=== PATIENT | male | born 1940 | race Caucasian/White ===

== ENCOUNTER 2016-08-07 05:23 | Observation (INO) | payer MEDICARE, OTHER ==
[~2016-08-07] VITALS: Ht 180.3 cm; Wt 125.0 kg
--- NOTE | 2016-08-08 16:28 | OR ---
ADMIT: 08/07/2016 RM/LOC: [address] [facility] MR#: [id number] [facility] [address] [place] [id number] MARLEY ROSAS [address] [place] [address] Operative/Delivery Room Report SEX: M AGE: 75 : 1940 Corrected: [id number]/08/[id number] njv SURGERY DATE: 08/07/2016 SURGEON: Hari Bravo MD PREOPERATIVE DIAGNOSIS: Morbid obesity. POSTOPERATIVE DIAGNOSIS: Morbid obesity. PROCEDURE: Placement of large Lap-Band for weight loss. SENIOR ENGINEERING TECHNICIAN: Pablito Cisneros MD, was necessary for adequate exposure, retraction, and completion of this case. ANESTHESIA: General endotracheal tube anesthesia. ESTIMATED BLOOD LOSS: 20 mL or less. INDICATION FOR PROCEDURE: Please see H and P. PROCEDURE IN DETAIL: After the risks, benefits, possible complications, and the alternatives had been explained, and informed consent had been obtained, the patient was taken back to the operating room, underwent general endotracheal tube anesthesia, the surgical field was prepped and draped in a sterile manner, placed in a head-up position. An incision was made in the left upper quadrant. Veress needle was inserted. The abdomen was insufflated with CO2. Once there was adequate insufflation, a 5 mm port was placed and the camera was placed through this port site laterally. I then placed my large port at my 1st incision site, two right-sided ports were placed, 5 mm lateral for liver retractor and then another 5 mm epigastric and one more left 5 mm port. The liver retractor was placed and attached with the Shaun Arm into position, then went up open the gastrohepatic ligament, got at the lluvia of the diaphragm, did some dissecting there and dropped in that nice area posterior to the stomach, went up and took the fat pad off using the Harmonic Scalpel. Once that was done, I placed the, like I said, my grasper. The posterior area was able to get it out, but over the greater curve there, introduced the Lap- Band into the abdominal cavity and was brought around into position. Then, using an Endo stitch, placed one stitch up high of the gastric fundus over top to the stomach over top of the band, the band was buckled and a second stitch was placed in the similar manner. Everything appeared in good position. Hopefully, our stitches there should prevent any slippage, did not see any issues or problems or complicating features. I brought the catheter then out the large port site, removed the liver retractor. I then closed the fascia of ADMIT: 08/07/2016 RM/LOC: 629 [facility] MR#: [id number] [address] [id number] [address] ROSAS [address] [place] [address] Operative/Delivery Room Report SEX: M AGE: 75 : 1940 the large port site with 0 Polysorb suture around the catheter, closed that down and then attached the port to the catheter and placed four stitches of 0 Ethibond to the anterior abdominal wall, holding the port in place after we had already made our pocket right down the fascia. Then, injected 0.5% Marcaine for pain control. Closed the subcutaneous tissue of the large incision site with 3-0 Vicryl and 4-0 Monocryl. The other incisions were closed with 4-0 Monocryl. He tolerated it well. He was extubated, taken to the recovery room in stable and satisfactory condition. Hari Bravo MD/ loida JOB #: [id number] CC: Hari Bravo, Attending Physician Gianfranco Ward, Family Physician Gianfranco Ward MD Corrected: 08/08/2016 0619 njv
[2016-08-09] MEDS ORDERED: ZESTRIL DPS5 MG PO (16:12)
[2016-08-09] MEDS ORDERED: ZOCOR DPS10 MG PO (16:13)
[2016-08-09] MEDS ORDERED: NEURONTIN DPS100 MG PO (16:13)
[2016-08-09] MEDS ORDERED: NEURONTIN DPS600 MG PO (16:14)
[2016-08-09] MEDS ORDERED: AMBIEN DPS10 MG PO (16:14)
[2016-08-09] MEDS ORDERED: ASPIRIN EC81 MG PO (16:14)
[2016-08-09] MEDS ORDERED: LASIX DPS40 MG PO (16:15)
[2016-08-09] MEDS ORDERED: CYMBALTA60 MG PO (16:15)
[2016-08-09] MEDS ORDERED: NEXIUM40 MG PO (16:16)
[2016-08-09] MEDS ORDERED: FLEXERIL-DPS10 MG PO (16:16)
[2016-08-09] MEDS ORDERED: LORTAB LIQUID D15 ML PO (16:17)
[2016-08-09] MEDS ORDERED: CITRACAL SOFT1 EACH PO (16:17)
== END 2016-08-08 10:50 | disposition home or self-care (01) ==
LOC: SSS 05:23 → 6PED 09:02 → SSS 09:21 → 6PED 08-08 10:50
PROVIDERS: ADMIT Surgery
PROC: 0DV64CZ Restriction of Stomach with Extraluminal Device, Percutaneous Endoscopic Approach (ICD-10-PCS; principal; 2016-08-07)
DX: E66.01 Morbid (severe) obesity due to excess calories (principal); I10 Essential (primary) hypertension; E78.5 Hyperlipidemia, unspecified; Z79.899 Other long term (current) drug therapy; E11.9 Type 2 diabetes mellitus without complications; G40.909 Epilepsy, unspecified, not intractable, without status epilepticus; Z68.41 Body mass index [BMI] 40.0-44.9, adult; Z87.891 Personal history of nicotine dependence; Z86.010 Personal history of colon polyps; Z98.890 Other specified postprocedural states